=== PATIENT | female | born 2000 | race Two or more races ===

== ENCOUNTER 2024-08-24 08:08 | Emergency (ER) | payer MEDICAID ==
[~2024-08-24] VITALS: Ht 167.6 cm; Wt 63.6 kg
[2024-08-24 08:14] VITALS: BP 119/91; PULSE 72; RESP 16; TEMP 96.5; O2SAT 98
[2024-08-24 08:45] LABS: BILIRUBIN,URINE NEGATIVE (Neg); CLARITY,URINE CLOUDY (Clear); COLOR,URINE YELLOW (Yellow); GLUCOSE, URINE NEGATIVE (Neg); KETONES,URINE NEGATIVE (Neg); LEUKOCYTE ESTERASE ,URINE MODERATE (Neg); NITRITES, URINE NEGATIVE (Neg); OCCULT BLOOD,URINE MODERATE (Neg); PROTEIN,URINE 100 mg/dl (Neg); UROBILINOGEN,URINE 0.2 E.U/dL (0.2-1.0)
[2024-08-24 08:46] LABS: UA COLLECTION TYPE CLN CATCH MIDSTREAM
[2024-08-24 08:55] LABS: MUCUS STRANDS FEW /LPF (Neg); SQUAMOUS EPITHELIAL CELL,UR MODERATE /LPF (FEW)
[2024-08-24 08:58] LABS: BACTERIA,URINE 1+ /HPF (Neg); WBC,URINE TNTC /HPF (0-4)
[2024-08-24] MEDS ORDERED: CEFU250T95 PO (09:04)
== END 2024-08-24 09:57 | disposition home or self-care (01) ==
LOC: ER 08:08
DX: N39.0 Urinary tract infection, site not specified (principal); R31.9 Hematuria, unspecified; Z79.2 Long term (current) use of antibiotics
CPT/HCPCS: 81001; 87088; 99283